=== PATIENT | female | born 1965 | race Hispanic/Latino ===

== ENCOUNTER 2018-02-11 12:56 | Emergency (ER) | payer OTHER ==
[~2018-02-11] VITALS: Ht 144.8 cm; Wt 60.0 kg
[2018-02-11] MEDS ORDERED: LISINOPRIL10 M1 PO (14:09)
[2018-02-11] MEDS ORDERED: METFORMIN HCL1000 MG PO (14:09)
[2018-02-11] MEDS ORDERED: IBUPROFEN600 MG PO (14:26)
[2018-02-11] MEDS ORDERED: FLEXERIL5 M1 PO (14:26)
[2018-02-11 14:30] VITALS: BP 148/84
== END 2018-02-11 14:30 | disposition home or self-care (01) | DRG 552 ==
LOC: ED 12:56
DX: S16.1XXA Strain of muscle, fascia and tendon at neck level, initial encounter (principal); S39.012A Strain of muscle, fascia and tendon of lower back, initial encounter; V89.2XXA Person injured in unspecified motor-vehicle accident, traffic, initial encounter

== ENCOUNTER 2018-03-24 20:43 | Emergency (ER) | payer SELFPAY ==
[~2018-03-24] VITALS: Ht 144.8 cm; Wt 60.4 kg
[~2018-03-24 20:43] MED LIST: FLEXERIL5 M1 PO; IBUPROFEN600 MG PO; LISINOPRIL10 M1 PO; METFORMIN HCL1000 MG PO
[2018-03-24 21:37] LABS: URINE BILIRUBIN - DIPSTICK NEGATIVE (NEGATIVE); URINE BLOOD DIPSTICK LARGE (NEGATIVE); URINE GLUCOSE - DIPSTICK >=1000 mg/dL (NEGATIVE); URINE KETONE NEGATIVE (NEGATIVE); URINE NITRITE - DIPSTICK NEGATIVE (Negative); URINE PH 5.5 (4.5-8.0); URINE PROTEIN - DIPSTICK TRACE mg/dL (NEG-TRACE); URINE SPECIFIC GRAVITY 1.025; URINE UROBILINOGEN - DIPSTICK 0.2 E.U./dL (0.2)
[2018-03-24 21:38] LABS: HEMATOCRIT 40.7 % (37.0-47.0); HEMOGLOBIN 13.9 g/dl (12.0-16.0); IMMATURE GRANULOCYTES 0.2 % (0.0-5.0); MEAN CELL VOLUME 93.6 fL CALC (80.0-100.0); MEAN CORPUSCULAR HGB CONC 34.2 g/L CALC (32.0-36.0); NEUT# 6.4 thou/uL (2.00-7.15); RED BLOOD COUNT 4.35 mill/uL (4.20-5.60); RED CELL DISTRI WIDTH 11.9 % (11.5-15.5); URINE CLARITY CLOUDY; URINE COLOR DK. YELLOW; URINE LEUK ESTERASE MODERATE (NEGATIVE)
[2018-03-24 21:48] LABS: URINE RBC TNTC RBC/hpf (0-5); URINE WBC 20-50 WBC/hpf (0-5)
[2018-03-24 21:49] LABS: URINE BACTERIA RARE hpf; URINE SQUAMOUS EPITHELIAL CELL FEW EPI/hpf (0-FEW)
[2018-03-24 22:20] LABS: ALBUMIN 4.3 g/dL (3.2-5.0); ANION GAP 15 (6-22 (CALC)); BILIRUBIN, TOTAL 0.3 mg/dL (0.0-1.4); BUN 15 mg/dL (7-17); BUN/CREATININE RATIO 29 (12-20 (CALC)); CARBON DIOXIDE 25 mmol/l (22-30); CHLORIDE 103 mmol/l (95-108); CREATININE 0.5 mg/dL (0.5-1.0); GFR > 60 ML/MIN (>=60 (CALC)); GFR FOR AFR.AMER. > 60 ML/MIN (>=60 (CALC)); POTASSIUM 4.1 mmol/l (3.5-5.1); SGOT/AST 39 u/l (14-36); SODIUM 139 mmol/l (137-146)
[2018-03-24 22:39] LABS: ALKALINE PHOSPHATASE 111 u/l (38-126)
[2018-03-25 00:58] VITALS: BP 114/65
== END 2018-03-25 00:58 | disposition home or self-care (01) | DRG 761 ==
LOC: ED 20:43
PROVIDERS: Emergency Medicine
DX: N95.0 Postmenopausal bleeding (principal); R93.89 Abnormal findings on diagnostic imaging of other specified body structures

== ENCOUNTER 2018-10-14 23:34 | Emergency (ER) | payer SELFPAY ==
[~2018-10-14] VITALS: Ht 144.8 cm; Wt 58.4 kg
[2018-10-15 00:16] LABS: HEMATOCRIT 41.7 % (37.0-47.0); HEMOGLOBIN 14.3 g/dl (12.0-16.0); IMMATURE GRANULOCYTES 0.3 % (0.0-5.0); MEAN CELL VOLUME 90.3 fL CALC (80.0-100.0); MEAN CORPUSCULAR HGB CONC 34.3 g/L CALC (32.0-36.0); NEUT# 7.85 thou/uL (2.00-7.15); RED BLOOD COUNT 4.62 mill/uL (4.20-5.60); RED CELL DISTRI WIDTH 11.7 % (11.5-15.5)
[2018-10-15 00:16] LABS: URINE BILIRUBIN - DIPSTICK NEGATIVE (NEGATIVE); URINE BLOOD DIPSTICK LARGE (NEGATIVE); URINE GLUCOSE - DIPSTICK 250 mg/dL (NEGATIVE); URINE KETONE NEGATIVE (NEGATIVE); URINE PROTEIN - DIPSTICK 100 mg/dL (NEG-TRACE); URINE SPECIFIC GRAVITY 1.015; URINE UROBILINOGEN - DIPSTICK 0.2 E.U./dL (0.2)
[2018-10-15 00:17] LABS: URINE COLOR RED; URINE LEUK ESTERASE LARGE (NEGATIVE); URINE NITRITE - DIPSTICK POSITIVE (Negative)
[2018-10-15 00:24] LABS: URINE BACTERIA MODERATE hpf; URINE RBC TNTC RBC/hpf (0-5); URINE SQUAMOUS EPITHELIAL CELL FEW EPI/hpf (0-FEW); URINE WBC TNTC WBC/hpf (0-5)
[2018-10-15 00:58] LABS: BUN 22 mg/dL (7-17); BUN/CREATININE RATIO 44 (12-20 (CALC)); CREATININE 0.5 mg/dL (0.5-1.0); GFR > 60 ML/MIN (>=60 (CALC)); GFR FOR AFR.AMER. > 60 ML/MIN (>=60 (CALC)); POTASSIUM 3.9 mmol/l (3.5-5.1); SODIUM 140 mmol/l (137-146)
[2018-10-15 00:59] LABS: ALBUMIN 4.5 g/dL (3.2-5.0); ANION GAP 15 (6-22 (CALC)); BILIRUBIN, TOTAL 0.4 mg/dL (0.0-1.4); CARBON DIOXIDE 27 mmol/l (22-30); CHLORIDE 102 mmol/l (95-108); SGOT/AST 31 u/l (14-36)
[2018-10-15 01:00] LABS: ALKALINE PHOSPHATASE 151 u/l (38-126)
[2018-10-15] MEDS ORDERED: PYRIDIUM200 MG PO (01:13)
[2018-10-15] MEDS ORDERED: CEPHALEXIN500 M1 PO (01:13)
[2018-10-15 01:30] VITALS: BP 140/86
== END 2018-10-15 01:30 | disposition home or self-care (01) | DRG 690 ==
LOC: ED 23:34
PROVIDERS: Emergency Medicine
DX: N39.0 Urinary tract infection, site not specified (principal); B96.20 Unspecified Escherichia coli [E. coli] as the cause of diseases classified elsewhere; E11.9 Type 2 diabetes mellitus without complications; I10 Essential (primary) hypertension

== ENCOUNTER 2024-06-23 21:02 | Emergency (ER) | payer SELFPAY ==
[~2024-06-23] VITALS: Ht 144.8 cm; Wt 57.0 kg
[~2024-06-23 21:02] MED LIST changes: +CEPHALEXIN500 M1 PO; +PYRIDIUM200 MG PO
[2024-06-23] MEDS ORDERED: KETOROLAC TROMETHAMINE 30 MG/ML SDV IM ONE (21:25)
[2024-06-23] MEDS ORDERED: traMADol HCL 50 MG/TAB PO ONE (21:25)
[2024-06-23 23:21] VITALS: BP 144/91
== END 2024-06-23 23:21 | disposition home or self-care (01) | DRG 605 ==
LOC: ED 21:02
DX: S80.01XA Contusion of right knee, initial encounter (principal); S80.211A Abrasion, right knee, initial encounter; I10 Essential (primary) hypertension; E11.9 Type 2 diabetes mellitus without complications; W01.0XXA Fall on same level from slipping, tripping and stumbling without subsequent striking against object, initial encounter; Y92.009 Unspecified place in unspecified non-institutional (private) residence as the place of occurrence of the external cause